=== PATIENT | female | born 1955 | race Caucasian/White ===

== ENCOUNTER → 2018-01-30 | Outpatient (CLI) | payer OTHER ==
[~2018-01-30] MED LIST: AMIT75 PO; ASCO500 PO; ATOR10 PO; BENAML10/5 PO; BIEST CREAM; CARBONYL IRON; FISH1000 PO; LEVSOD75 PO; NEBI10 PO
== END | disposition home or self-care (01) ==
LOC: LAB EV 10:30 → LAB SHORT 10:30
DX: R30.0 Dysuria (principal)
CPT/HCPCS: 87086

== ENCOUNTER 2018-03-09 09:08 | Day surgery (SDC) | payer OTHER ==
[~2018-03-09] VITALS: Ht 160 cm; Wt 90.9 kg
[2018-03-09] MEDS ORDERED: Hydrochlorothia25 MG (09:23)
[2018-03-09] MEDS ORDERED: AMLO5 (09:24)
== END 2018-03-09 11:13 | disposition home or self-care (01) ==
LOC: ORSCSDS 09:08
PROVIDERS: Surgery
PROC: 0DJD8ZZ Inspection of Lower Intestinal Tract, Via Natural or Artificial Opening Endoscopic (ICD-10-PCS; principal; 2018-03-09 10:15)
DX: Z12.11 Encounter for screening for malignant neoplasm of colon (principal); E78.5 Hyperlipidemia, unspecified; I10 Essential (primary) hypertension; E03.9 Hypothyroidism, unspecified; Z98.84 Bariatric surgery status; E66.01 Morbid (severe) obesity due to excess calories; Z68.36 Body mass index [BMI] 36.0-36.9, adult; Z87.891 Personal history of nicotine dependence; Z79.899 Other long term (current) drug therapy
CPT/HCPCS: J7120

== ENCOUNTER → 2020-04-06 | Outpatient (CLI) | payer MEDICARE, OTHER ==
[~2020-04-06] MED LIST changes: +AMLO5; +Hydrochlorothia25 MG
== END | disposition home or self-care (01) ==
LOC: LAB SHORT 11:26 → LAB EV 11:26
DX: N39.0 Urinary tract infection, site not specified (principal)
CPT/HCPCS: 87077; 87086; 87186

== ENCOUNTER → 2022-11-22 | Outpatient (CLI) | payer MEDICARE, OTHER ==
[2022-11-22 09:59] LABS: Source, Urine Clean Catch
[2022-11-22 10:07] LABS: Bacteria Not Seen /hpf; Red Blood Cells, Urine Not Seen /hpf (0-2); Squamous Epithelial Cells Many /hpf (Few); White Blood Cells, Urine Not Seen /hpf (0-5)
== END | disposition home or self-care (01) ==
LOC: LAB SHORT 09:57 → LAB 09:57
PROVIDERS: Physician Assistant Medical
DX: R39.15 Urgency of urination (principal)
CPT/HCPCS: 81015; 87086

== ENCOUNTER 2023-04-10 20:51 | Inpatient (IN) | payer MEDICARE, OTHER ==
[~2023-04-10] VITALS: Ht 160 cm; Wt 94.0 kg
[2023-04-10 22:01] LABS: BASOPHILS ABSOLUTE AUTO 0.03 K/mm3 (0.00-0.23); BASOPHILS PERCENT AUTO 0 % (0-2); EOSINOPHILS ABSOLUTE AUTO 0.01 K/mm3 (0.00-0.68); EOSINOPHILS PERCENT AUTO 0 % (0-6); Hematocrit 41.9 % (33.0-51.0); Hemoglobin 14.7 g/dL (11.5-16.0); IMMATURE GRAN ABSOLUTE AUTO 0.05 K/mm3 (0.00-0.10); IMMATURE GRAN PERCENT AUTO 1 % (0-1); LYMPHOCYTES ABSOLUTE AUTO 0.31 K/mm3 (0.84-5.20); LYMPHOCYTES PERCENT AUTO 3 % (21-46); MONOCYTES ABSOLUTE AUTO 0.44 K/mm3 (0.16-1.47); MONOCYTES PERCENT AUTO 4 % (4-13); Mean Corpuscular HGB 31.3 pg (26.0-34.0); Mean Corpuscular HGB Conc 35.1 g/dL (31.5-36.5); Mean Corpuscular Volume 89 fL (80-100); NEUTROPHILS ABSOLUTE AUTO 9.92 K/mm3 (1.96-9.15); NEUTROPHILS PERCENT AUTO 92 % (41-73); RDW Coefficient Variation 13.3 % (11.7-14.2); RDW Standard Deviation 43.5 fL (35.1-46.3); Red Blood Cell Count 4.69 M/mm3 (3.80-5.20); White Blood Cell Count 10.76 K/mm3 (4.00-11.30)
[2023-04-10 22:37] LABS: Alanine Aminotransfer (ALT/SGP 1601 U/L (12-78); Albumin, Blood 3.7 g/dL (3.4-5.0); Alk Phos 241 U/L (50-136); Anion Gap 8 mmol/L (6-16); Aspartate Aminotrans (AST/SGOT 1840 U/L (12-37); Blood Urea Nitrogen 18 mg/dL (8-24); Bun/Creatinine Ratio 27.2 (12.0-20.0); CO2, Blood 24 mmol/L (21-32); Calcium, Blood 9.5 mg/dL (8.5-10.1); Chloride, Blood 104 mmol/L (98-108); Creatinine, Blood 0.66 mg/dL (0.40-1.00); Globulin, Blood 3.7 g/dL (2.2-4.0); Glomerular Filtration Rate 95 (60-); Glucose, Blood 145 mg/dL (70-99); Potassium, Blood 3.4 mmol/L (3.5-5.5); Sodium, Blood 136 mmol/L (136-145); Total Protein, Blood 7.4 g/dL (6.4-8.2)
[2023-04-10 22:37] LABS: Source, Urine Clean Catch
[2023-04-10 22:47] LABS: Mean Platelet Volume 10.3 fL (9.1-12.4)
[2023-04-10 22:50] LABS: Platelet Count 204 K/mm3 (150-400)
[2023-04-10 23:24] LABS: Bilirubin, Urine Neg (Neg); Blood, Urine 2+ (Neg); Glucose Qualitative, Urine Neg (Neg); Ketones, Urine Neg (Neg); Leukocyte Esterase, Urine Neg (Neg); Nitrite, Urine Neg (Neg); Protein, Urine 2+ (Neg); Urobilinogen, Urine NORM (Normal)
[2023-04-10 23:40] LABS: Appearance, Urine Clear (Clear); Color, Urine Yellow (P-Yellow)
[2023-04-10 23:42] LABS: Bacteria Few /hpf; Red Blood Cells, Urine 0-2 /hpf (0-2); Squamous Epithelial Cells Mod /hpf (Few); White Blood Cells, Urine 0-2 /hpf (0-5)
[2023-04-11] MEDS ORDERED: TRIA50 PO (05:29)
[2023-04-11] MEDS ORDERED: Benazepril HCl10 MG PO (05:31)
[2023-04-11 05:45] VITALS: BP 112/55
--- NOTE | 2023-04-11 05:54 | NUR ---
ARRIVAL PT NEW ADMIT FROM ER. ARRIVED IN NO DISTRESS, A/OX4, SBA. VOIDING W/O DIFFICULTY. ENDORSES RUQ AND RIGHT FLANK PAIN. PT DENIES N/V. EDUCATED ABOUT NPO STATUS, IV FLUIDS INFUSING. BED IN LOW, CALL LIGHT IN REACH
[2023-04-11 07:58] VITALS: BP 114/55
[2023-04-11 10:26] LABS: BASOPHILS ABSOLUTE AUTO 0.03 K/mm3 (0.00-0.23); BASOPHILS PERCENT AUTO 0 % (0-2); EOSINOPHILS ABSOLUTE AUTO 0.06 K/mm3 (0.00-0.68); EOSINOPHILS PERCENT AUTO 1 % (0-6); Hematocrit 35.5 % (33.0-51.0); Hemoglobin 12.3 g/dL (11.5-16.0); IMMATURE GRAN ABSOLUTE AUTO 0.04 K/mm3 (0.00-0.10); IMMATURE GRAN PERCENT AUTO 0 % (0-1); LYMPHOCYTES ABSOLUTE AUTO 0.62 K/mm3 (0.84-5.20); LYMPHOCYTES PERCENT AUTO 5 % (21-46); MONOCYTES ABSOLUTE AUTO 0.57 K/mm3 (0.16-1.47); MONOCYTES PERCENT AUTO 5 % (4-13); Mean Corpuscular HGB 31.5 pg (26.0-34.0); Mean Corpuscular HGB Conc 34.6 g/dL (31.5-36.5); Mean Corpuscular Volume 91 fL (80-100); Mean Platelet Volume 10.2 fL (9.1-12.4); NEUTROPHILS ABSOLUTE AUTO 11.11 K/mm3 (1.96-9.15); NEUTROPHILS PERCENT AUTO 89 % (41-73); Platelet Count 194 K/mm3 (150-400); RDW Coefficient Variation 13.7 % (11.7-14.2); RDW Standard Deviation 45.6 fL (35.1-46.3); White Blood Cell Count 12.43 K/mm3 (4.00-11.30)
[2023-04-11 10:49] LABS: Albumin/Globulin Ratio 0.8 (0.8-1.8); Alk Phos 193 U/L (50-136); Anion Gap 4 mmol/L (6-16); Aspartate Aminotrans (AST/SGOT 950 U/L (12-37); Bilirubin, Total 0.9 mg/dL (0.1-1.0); Blood Urea Nitrogen 10 mg/dL (8-24); Bun/Creatinine Ratio 15.6 (12.0-20.0); CHOL/HDL RATIO 1.7; CO2, Blood 27 mmol/L (21-32); Calcium, Blood 8.6 mg/dL (8.5-10.1); Chloride, Blood 109 mmol/L (98-108); Cholesterol 108 mg/dL (50-200); Creatinine, Blood 0.64 mg/dL (0.40-1.00); Globulin, Blood 3.6 g/dL (2.2-4.0); Glomerular Filtration Rate 96 (60-); Glucose, Blood 120 mg/dL (70-99); HDL Cholesterol 62 mg/dL (>39); LDL/HDL RATIO 0.6; Low Density Lipoprotein Chol 37 mg/dL (0-110); Potassium, Blood 3.8 mmol/L (3.5-5.5); Sodium, Blood 140 mmol/L (136-145); Total Protein, Blood 6.6 g/dL (6.4-8.2); Triglycerides 47 mg/dL (30-160); Very Low Density Lipoprot Chol 9 mg/dL (6-32)
[2023-04-11 11:19] LABS: Alanine Aminotransfer (ALT/SGP 1332 U/L (12-78)
[2023-04-11 14:47] VITALS: BP 115/52
--- NOTE | 2023-04-11 19:24 | NUR ---
SHIFT SUMMARY ALERT, ORIENTED, PLEASANT, COOPERATIVE. INDEPENDENT IN ROOM. ROOM AIR, NO TELE. VSS. NPO EXCEPT FOR MEDS AND WATER. DENIES NAUSEA. MEDICATED FOR ABD PAIN IN AM PER EMAR, PAIN IMPROVED THROUGH AFTERNOON AND DECLINED NEED FOR MORE PAIN MEDS. VOIDING WELL. TOOK A SHOWER THIS SHIFT. NO BED AVAILABILITY AT [facility] FOR ERCP PER CHARGE NURSE EV JADE AND DR ARIZMENDI. MRCP IMAGES PUSHED TO [facility]. PATIENT AND SON UPDATED OF PROGRESS. ROUTINE ABX INFUSING. REPORT GIVEN TO DIE STAMPING PRESS OPERATOR RN.
[2023-04-11 20:01] VITALS: BP 130/57
--- NOTE | 2023-04-12 03:00 | NUR ---
TRANSFER LINE TRANSFER LINE CALED, REQUESTED UPDATE ON PT. CURRENTLY AWAITING BED ASSIGNEMNT AT THIS TIME. NO NEW UPDATES AT THIS TIME.
[2023-04-12 04:35] VITALS: BP 126/55
--- NOTE | 2023-04-12 05:16 | NUR ---
SHIFT SUMMARY VSS. PT SLEPT WELL T/O THE NIGHT. PT MEDICATED FOR PAIN WITH DILAUDID TWICE. PT TOLLERATING WATER T/O THE NIGHT W/O N/V. VOIDING W/O DIFFICUTLY, NO BM'S NOTED. AWAITING BED AVAILABILTY FOR TRANSFER. NO ACUTE EVENTS NOTED T/O THE NIGHT
[2023-04-12 07:00] VITALS: BP 128/60
[2023-04-12 07:21] LABS: BASOPHILS PERCENT AUTO 0 % (0-2); EOSINOPHILS ABSOLUTE AUTO 0.35 K/mm3 (0.00-0.68); EOSINOPHILS PERCENT AUTO 4 % (0-6); Hematocrit 33.8 % (33.0-51.0); Hemoglobin 11.3 g/dL (11.5-16.0); IMMATURE GRAN ABSOLUTE AUTO 0.03 K/mm3 (0.00-0.10); IMMATURE GRAN PERCENT AUTO 0 % (0-1); LYMPHOCYTES ABSOLUTE AUTO 0.25 K/mm3 (0.84-5.20); LYMPHOCYTES PERCENT AUTO 3 % (21-46); MONOCYTES ABSOLUTE AUTO 0.53 K/mm3 (0.16-1.47); MONOCYTES PERCENT AUTO 6 % (4-13); Mean Corpuscular HGB 31.1 pg (26.0-34.0); Mean Corpuscular HGB Conc 33.4 g/dL (31.5-36.5); Mean Corpuscular Volume 93 fL (80-100); Mean Platelet Volume 10.2 fL (9.1-12.4); NEUTROPHILS ABSOLUTE AUTO 7.71 K/mm3 (1.96-9.15); NEUTROPHILS PERCENT AUTO 87 % (41-73); Platelet Count 159 K/mm3 (150-400); RDW Coefficient Variation 13.8 % (11.7-14.2); Red Blood Cell Count 3.63 M/mm3 (3.80-5.20); White Blood Cell Count 8.87 K/mm3 (4.00-11.30)
[2023-04-12 07:39] LABS: Albumin, Blood 2.8 g/dL (3.4-5.0); Albumin/Globulin Ratio 0.8 (0.8-1.8); Bilirubin, Total 0.8 mg/dL (0.1-1.0); Bun/Creatinine Ratio 20.1 (12.0-20.0); Calcium, Blood 8.4 mg/dL (8.5-10.1); Creatinine, Blood 0.6 mg/dL (0.40-1.00); Globulin, Blood 3.5 g/dL (2.2-4.0); Potassium, Blood 3.2 mmol/L (3.5-5.5); Total Protein, Blood 6.3 g/dL (6.4-8.2)
[2023-04-12 13:55] VITALS: BP 136/62
[2023-04-12 19:22] VITALS: BP 123/57
--- NOTE | 2023-04-12 19:43 | NUR ---
SHIFT SUMMARY PT HAS DONE WELL TODAY. TOLERATING SIPS OF WATER T/O SHIFT. STATED SHE HAD A GENERAL UNWELL FEELING THIS MORNING & BELIEVES IT IS RELATED TO DILAUDID. FEELS BETTER THIS AFTERNOON. WAITING TO TRANSFER TO [facility].
[2023-04-13 04:28] VITALS: BP 145/61
[2023-04-13 05:00] LABS: BASOPHILS ABSOLUTE AUTO 0.01 K/mm3 (0.00-0.23); BASOPHILS PERCENT AUTO 0 % (0-2); EOSINOPHILS ABSOLUTE AUTO 0.35 K/mm3 (0.00-0.68); EOSINOPHILS PERCENT AUTO 4 % (0-6); Hematocrit 32.7 % (33.0-51.0); Hemoglobin 11.1 g/dL (11.5-16.0); IMMATURE GRAN ABSOLUTE AUTO 0.06 K/mm3 (0.00-0.10); IMMATURE GRAN PERCENT AUTO 1 % (0-1); LYMPHOCYTES ABSOLUTE AUTO 0.33 K/mm3 (0.84-5.20); LYMPHOCYTES PERCENT AUTO 4 % (21-46); MONOCYTES ABSOLUTE AUTO 0.72 K/mm3 (0.16-1.47); MONOCYTES PERCENT AUTO 8 % (4-13); Mean Corpuscular HGB Conc 33.9 g/dL (31.5-36.5); Mean Corpuscular Volume 91 fL (80-100); NEUTROPHILS PERCENT AUTO 84 % (41-73); Platelet Count 171 K/mm3 (150-400); RDW Coefficient Variation 13.3 % (11.7-14.2); Red Blood Cell Count 3.58 M/mm3 (3.80-5.20); White Blood Cell Count 9.07 K/mm3 (4.00-11.30)
[2023-04-13 05:30] LABS: BASOPHILS PERCENT MAN 0 % (0-2); EOSINOPHILS ABSOLUTE MAN 0.27 K/mm3 (0.00-0.68); EOSINOPHILS PERCENT MAN 3 % (0-6); LYMPHOCYTES ABSOLUTE MAN 0.36 K/mm3 (0.84-5.20); LYMPHOCYTES PERCENT MAN 4 % (21-46); MONOCYTES ABSOLUTE MAN 0.63 K/mm3 (0.16-1.47); MONOCYTES PERCENT MAN 7 % (4-13); SEG NEUTROPHILS PERCENT MAN 86 % (41-73); TOTAL CELLS COUNTED 100
[2023-04-13 05:42] LABS: Albumin, Blood 2.7 g/dL (3.4-5.0); Albumin/Globulin Ratio 0.7 (0.8-1.8); Bilirubin, Total 0.7 mg/dL (0.1-1.0); Bun/Creatinine Ratio 15.3 (12.0-20.0); Calcium, Blood 8.4 mg/dL (8.5-10.1); Creatinine, Blood 0.59 mg/dL (0.40-1.00); Globulin, Blood 3.8 g/dL (2.2-4.0); Magnesium, Blood 2.1 mg/dL (1.6-2.4); Phosphorus, Blood 1.4 mg/dL (2.5-4.9); Potassium, Blood 3.2 mmol/L (3.5-5.5); Total Protein, Blood 6.5 g/dL (6.4-8.2)
--- NOTE | 2023-04-13 06:45 | NUR ---
SUMMARY PT REPORTS FEELING "BETTER" I SPOKE WITH TRANSFER EVENING SITTER [place]ROW AND WAS ADVISED THEY ARE WORKING DILLIGENTLY TO OBTAIN A ROOM FOR THIS PT AND WILL LET US KNOW SOON ONE BECOMES AVAILABLE.I SPOKE WITH PT REGARDING THIS AND SHE IS PLEASED.PT HAS BEEN RUNNING LOW GRADE TEMPS AND RA SATS BETWEEN 89-90 % PT DENIES CP OR SOB. DENIES HX LUNG DZ.PLACED 2 L N/C AND ENC CDB AND INSTRUCTED ON I.S.PT HAS FAINT CRACKLES L BASE AND FAINT EXP WHEEZE R BASE.WILL CONT TO MONITOR LUNGS,SATS AND TEMPS.
[2023-04-13 07:29] VITALS: BP 130/53
--- NOTE | 2023-04-13 13:54 | NUR ---
[facility] CALLED, NO BEDS CURRENTLY AVAILABLE, STATES WILL CHECK IN TOMORROW.
[2023-04-13 14:05] VITALS: BP 123/55
--- NOTE | 2023-04-13 17:42 | NUR ---
SUMMARY DENIED ANY ABD PAIN OR ANY DISCOMFORT TODAY, WAITING FOR [facility] BED FOR ERCP, AMBULATED DOWN HALLS, DENIES ANY SOB, PT USING IS INSTRUCTED, TOLERATING CLEAR LIQUIDS WELL, NO ACUTE CHANGES THIS SHIFT.
[2023-04-13 19:25] VITALS: BP 130/59
[2023-04-14 00:29] VITALS: BP 130/59
[2023-04-14 01:26] VITALS: BP 138/74
--- NOTE | 2023-04-14 02:17 | NUR ---
PT TRANSFERRED TO [facility] PER AMBULANCE ROOM BECAME AVAILABLE. PT ALERT,PLEASED ABOUT ROOM AVAILABILITY. L AC SL DCD WITH CATH INTACT. MAXIPIME IN AND FLAGYL INFUSING PER R AC IV WITH TRANSFER.
== END 2023-04-14 01:46 | disposition short-term general hospital (02) | DRG 440 ==
LOC: ER 20:51 → SURS 20:52
PROVIDERS: Family Medicine; Physician Assistant; ADMIT Internal Medicine
DX: K85.10 Biliary acute pancreatitis without necrosis or infection (principal); I10 Essential (primary) hypertension; E78.5 Hyperlipidemia, unspecified; E03.9 Hypothyroidism, unspecified; G47.00 Insomnia, unspecified; E66.01 Morbid (severe) obesity due to excess calories; K80.70 Calculus of gallbladder and bile duct without cholecystitis without obstruction; E86.0 Dehydration; Z98.890 Other specified postprocedural states; Z90.710 Acquired absence of both cervix and uterus; Z90.722 Acquired absence of ovaries, bilateral; Z98.84 Bariatric surgery status; Z88.0 Allergy status to penicillin; Z79.899 Other long term (current) drug therapy; Z79.890 Hormone replacement therapy; Z68.35 Body mass index [BMI] 35.0-35.9, adult
CPT/HCPCS: 36415; 71046; 74177; 74181; 76705; 80053; 80061; 81001; 83605; 83690; 83735; 84100; 84484; 85025; 87040; 93005; 93010; 96361; 96365; 96366; 96367; 96368; 96372; 96375; 96376; 99285-25; A9270; G0378; J0692; J0696; J1170; J1650; J1885; J2405; J3010; J3480; J7030; J7050; J7060; J7120; Q9967

== ENCOUNTER → 2023-07-28 | Outpatient (CLI) | payer MEDICARE, OTHER ==
[~2023-07-28] MED LIST changes: +Benazepril HCl10 MG PO; +TRIA50 PO
[2023-07-28 12:54] LABS: BASOPHILS ABSOLUTE AUTO 0.05 K/mm3 (0.00-0.23); BASOPHILS PERCENT AUTO 1 % (0-2); EOSINOPHILS ABSOLUTE AUTO 0.21 K/mm3 (0.00-0.68); EOSINOPHILS PERCENT AUTO 3 % (0-6); Hematocrit 42.5 % (33.0-51.0); Hemoglobin 14.2 g/dL (11.5-16.0); IMMATURE GRAN ABSOLUTE AUTO 0.01 K/mm3 (0.00-0.10); IMMATURE GRAN PERCENT AUTO 0 % (0-1); LYMPHOCYTES ABSOLUTE AUTO 1.57 K/mm3 (0.84-5.20); LYMPHOCYTES PERCENT AUTO 21 % (21-46); MONOCYTES ABSOLUTE AUTO 0.65 K/mm3 (0.16-1.47); MONOCYTES PERCENT AUTO 9 % (4-13); Mean Corpuscular HGB 30.5 pg (26.0-34.0); Mean Corpuscular HGB Conc 33.4 g/dL (31.5-36.5); Mean Corpuscular Volume 91 fL (80-100); Mean Platelet Volume 10.7 fL (9.1-12.4); NEUTROPHILS ABSOLUTE AUTO 5.12 K/mm3 (1.96-9.15); NEUTROPHILS PERCENT AUTO 67 % (41-73); Platelet Count 293 K/mm3 (150-400); RDW Coefficient Variation 13.3 % (11.7-14.2); Red Blood Cell Count 4.66 M/mm3 (3.80-5.20); White Blood Cell Count 7.61 K/mm3 (4.00-11.30)
[2023-07-28 13:14] LABS: Albumin, Blood 3.8 g/dL (3.4-5.0); Bilirubin, Total 0.5 mg/dL (0.1-1.0); Bun/Creatinine Ratio 31.3 (12.0-20.0); Calcium, Blood 9.9 mg/dL (8.5-10.1); Creatinine, Blood 0.8 mg/dL (0.40-1.00); Free Thyroxine 1.06 ng/dL (0.70-1.60); Magnesium, Blood 2.1 mg/dL (1.6-2.4); Potassium, Blood 4.5 mmol/L (3.5-5.5); Thyroid Stimulating Hormone 1.11 uIU/mL (0.360-4.800); Total Protein, Blood 7.8 g/dL (6.4-8.2)
== END | disposition home or self-care (01) ==
LOC: LAB SHORT 12:45 → LAB 12:45
PROVIDERS: Chiropractor
DX: E03.9 Hypothyroidism, unspecified (principal); R07.89 Other chest pain
CPT/HCPCS: 80053; 83690; 83735; 83880; 84439; 84443; 84484; 85025; 85379

== ENCOUNTER → 2024-04-11 | Outpatient (CLI) | payer MEDICARE, OTHER | LOC: LAB 13:14 → LAB SHORT 13:14 | DX: L82.1 Other seborrheic keratosis (principal) | CPT/HCPCS: 88305 ==

== ENCOUNTER → 2025-06-21 | Outpatient (CLI) | payer OTHER | LOC: LAB SHORT 13:03 → LAB 13:03 | DX: R30.0 Dysuria (principal) | CPT/HCPCS: 87086 ==